=== PATIENT | male | born 1940 | race Caucasian/White ===

== ENCOUNTER 2018-10-01 09:24 | Day surgery (SDC) | payer MEDICARE ==
[~2018-10-01 09:24] MED LIST: ASPI81CH PO; ATOR80 PO; CLOP75 PO; Isosorbide Mono30 MG PO; LISI5 PO; METO25ER PO
== END 2018-10-15 22:46 | disposition home or self-care (01) ==
LOC: CT 09:24
PROC: 0BBC3ZX Excision of Right Upper Lung Lobe, Percutaneous Approach, Diagnostic (ICD-10-PCS; principal; 2018-10-01)
DX: R91.8 Other nonspecific abnormal finding of lung field (principal)
CPT/HCPCS: 32405; 77012

== ENCOUNTER 2018-10-09 09:05 | Day surgery (SDC) | payer MEDICARE ==
--- NOTE | 2018-10-09 12:46 | NUR ---
PT TO RADIOLOGY FOR FOLLOW UP XRAY. AWAITING RADIOLOGY TO SEE IF PT NEEDS FURTHER RECOVERY OR WILL GO HOME FROM RADIOLOGY.
--- NOTE | 2018-10-09 13:02 | NUR ---
Discharge instructions reviewed with patient. Patient verbalizes understanding. Copy given to patient to take home. DISCHARGED BY RADIOLOGY.
== END 2018-10-09 23:14 | disposition home or self-care (01) ==
LOC: CT 09:05
DX: C34.11 Malignant neoplasm of upper lobe, right bronchus or lung (principal)
CPT/HCPCS: 32405; 71045; 77012; 88305; 88341; 88342

== ENCOUNTER 2019-01-21 21:57 | Inpatient (IN) | payer MEDICARE ==
[~2019-01-21] VITALS: Ht 190.5 cm; Wt 69.2 kg
[~2019-01-21 21:57] MED LIST changes: +ALPR1 PO; +Hydrocodone-Ap1 EA23 PO; +LOVA40; +OMEPRAZOLE20 MG PO; +PRED10 PO
[2019-01-21 23:11] LABS: BASOPHILS ABSOLUTE AUTO 0.03 K/mm3 (0.00-0.23); BASOPHILS PERCENT AUTO 0 % (0-2); EOSINOPHILS ABSOLUTE AUTO 0.03 K/mm3 (0.00-0.68); EOSINOPHILS PERCENT AUTO 0 % (0-6); Hematocrit 34.1 % (37.0-53.0); IMMATURE GRAN ABSOLUTE AUTO 0.04 K/mm3 (0.00-0.10); IMMATURE GRAN PERCENT AUTO 0 % (0-1); LYMPHOCYTES ABSOLUTE AUTO 0.58 K/mm3 (0.84-5.20); LYMPHOCYTES PERCENT AUTO 5 % (21-46); MONOCYTES ABSOLUTE AUTO 0.26 K/mm3 (0.16-1.47); MONOCYTES PERCENT AUTO 2 % (4-13); Mean Corpuscular HGB 30.8 pg (26.0-34.0); Mean Corpuscular HGB Conc 32.3 g/dL (31.5-36.5); Mean Corpuscular Volume 96 fL (80-100); Mean Platelet Volume 9.7 fL (9.1-12.4); NEUTROPHILS ABSOLUTE AUTO 11.41 K/mm3 (1.96-9.15); NEUTROPHILS PERCENT AUTO 93 % (41-73); Platelet Count 216 K/mm3 (150-400); RDW Coefficient Variation 13.8 % (11.7-14.2); Red Blood Cell Count 3.57 M/mm3 (4.30-5.90); White Blood Cell Count 12.35 K/mm3 (4.00-11.30)
[2019-01-21 23:30] LABS: Albumin, Blood 2.7 g/dL (3.4-5.0); Albumin/Globulin Ratio 0.6 (0.8-1.8); Bilirubin, Total 0.4 mg/dL (0.1-1.0); Bun/Creatinine Ratio 18.5 (12.0-20.0); Calcium, Blood 8.5 mg/dL (8.5-10.1); Creatinine, Blood 1.24 mg/dL (0.60-1.20); Globulin, Blood 4.2 g/dL (2.2-4.0); Potassium, Blood 4.2 mmol/L (3.5-5.5); Total Protein, Blood 6.9 g/dL (6.4-8.2)
--- NOTE | 2019-01-22 01:42 | NUR ---
0142 ADMIT: PT ARRIVES TO ROOM 343 VIA GOURNEY FROM ER WITH @ SIDE; TRANSFERS SELF TO BED WITH SBA AND APPEARS MILDLY INSTEADY ON FEET. PT STATES HE HAS BECOME INCREASINGLY UNSTEADY THE LAST FEW WEEKS AND HAS A WALKER AVAILABLE TO USE @ HOME. PT AND FAMILY ORIENTED TO BED, ROOM, FALL PRECAUTIONS, CALL SYSTEM AND VERBALIZE UNDERSTANDING. PT APPEARS HARD OF HEARING BUT IS A&O AND ABLE TO VERBALIZE NEEDS AND USE CALL LIGHT APPROPRIATELY. CALL LIGHT PLACED IN REACH.
[2019-01-22] MEDS ORDERED: ALBU90OI61 INH (01:44)
[2019-01-22] MEDS ORDERED: [UNRECOGNIZED DRUG - OTHER] IV (01:52)
[2019-01-22] MEDS ORDERED: KEYTRUDA100 MG/4 M IV (01:53)
--- NOTE | 2019-01-22 07:41 | NUR ---
SUMMARY: NEW ADMIT PNEUMONIA ON HOSPITALIST SERVICE. LOW GRADE TEMP CONTROLLED WITH PO TYLENOL X1, VSS, TELE NSR WITH BBB RATE IN 70'S, 3L O2 VIA NC TO MAINTAIN SPO2 >92%. COARSE RHONCHI T/O WITH HARSH NONPRODUCTIVE COUGH, PT DEMONSTRATES GOOD FLUTTER VALVE USE. PT SLEPT WELL FOR SHORT TIME AFTER PRN ROBITUSSIN AND 1MG PO ALPRAZOLAM (HOME MED AND DOSE). AWAIT SPUTUM AND URINE SAMPLES; DAY RN TO COLLECT RESPIRATORY PANEL SWAB WHEN PT WAKES.
[2019-01-22 10:02] LABS: Adenovirus Not Detected (NOT DETECT); Bordetella pertussis Not Detected (NOT DETECT); Chlamydophila pneumoniae Not Detected (NOT DETECT); Coronavirus 229E Not Detected (NOT DETECT); Coronavirus HKU1 Not Detected (NOT DETECT); Coronavirus NL63 Not Detected (NOT DETECT); Coronavirus OC43 Not Detected (NOT DETECT); Human Metapneumovirus Detected (NOT DETECT); Human Rhinovirus/Enterovirus Not Detected (NOT DETECT); Influenza A Not Detected (NOT DETECT); Influenza A/2009-H1 Not Detected (NOT DETECT); Influenza A/H1 Not Detected (NOT DETECT); Influenza A/H3 Not Detected (NOT DETECT); Influenza B Not Detected (NOT DETECT); Mycoplasma pneumoniae Not Detected (NOT DETECT); Parainfluenza Virus 1 Not Detected (NOT DETECT); Parainfluenza Virus 2 Not Detected (NOT DETECT); Parainfluenza Virus 3 Not Detected (NOT DETECT); Parainfluenza Virus 4 Not Detected (NOT DETECT); Respiratory Syncytial Virus Not Detected (NOT DETECT)
[2019-01-22 11:12] LABS: Source, Urine Clean Catch
[2019-01-22 11:24] LABS: Bilirubin, Urine Neg (Neg); Blood, Urine Neg (Neg); Glucose Qualitative, Urine Neg (Neg); Ketones, Urine Neg (Neg); Leukocyte Esterase, Urine Neg (Neg); Nitrite, Urine Neg (Neg); Protein, Urine 1+ (Neg); Specific Gravity, Urine 1.015 (1.003-1.022); Urobilinogen, Urine NORM (Normal)
[2019-01-22 11:36] LABS: Appearance, Urine Clear (Clear); Color, Urine Yellow (P-Yellow)
[2019-01-22 12:02] LABS: Hematocrit 32.8 % (37.0-53.0); Hemoglobin 10.4 g/dL (13.5-17.5); Mean Corpuscular HGB 30.2 pg (26.0-34.0); Mean Corpuscular HGB Conc 31.7 g/dL (31.5-36.5); Mean Corpuscular Volume 95 fL (80-100); Mean Platelet Volume 9.6 fL (9.1-12.4); Platelet Count 224 K/mm3 (150-400); RDW Coefficient Variation 14.1 % (11.7-14.2); RDW Standard Deviation 49.1 fL (35.1-46.3); Red Blood Cell Count 3.44 M/mm3 (4.30-5.90); White Blood Cell Count 14.98 K/mm3 (4.00-11.30)
[2019-01-22 12:24] LABS: Alanine Aminotransfer (ALT/SGP 13 U/L (12-78); Albumin, Blood 2.4 g/dL (3.4-5.0); Albumin/Globulin Ratio 0.6 (0.8-1.8); Alk Phos 63 U/L (50-136); Anion Gap 3 mmol/L (6-16); Aspartate Aminotrans (AST/SGOT 11 U/L (12-37); Bilirubin, Total 0.8 mg/dL (0.1-1.0); Blood Urea Nitrogen 21 mg/dL (8-24); Bun/Creatinine Ratio 18.8 (12.0-20.0); CO2, Blood 28 mmol/L (21-32); Calcium, Blood 8.3 mg/dL (8.5-10.1); Chloride, Blood 103 mmol/L (98-108); Creatinine, Blood 1.12 mg/dL (0.60-1.20); Globulin, Blood 4.2 g/dL (2.2-4.0); Glomerular Filtration Rate >60 (60-); Glucose, Blood 111 mg/dL (70-99); Potassium, Blood 4.6 mmol/L (3.5-5.5); Sodium, Blood 134 mmol/L (136-145); Total Protein, Blood 6.6 g/dL (6.4-8.2)
--- NOTE | 2019-01-22 17:44 | NUR ---
SUMMARY PT SITTING UP IN BED EATING DINNER, PT HAS BEEN PLEASANT AND COOPERATIVE WITH CARE, PT UP TO THE BATHROOM WITH STANDBY ASSIST, PT USING THE FLUTTER VALVE INDEPENDENTLY, PT WITH A POOR APPETITE T/O THE DAY, SPOUSE CALLED TO CHECK ON THE PT, VSS, NO ACUTE CHANGES, WILL CONT TO MONITOR
--- NOTE | 2019-01-23 05:58 | NUR ---
no acute changes, requested to be allowed to go home in no further treatments will be forthcoming, advised talking to pcp or dr in charge of care, will pass on to day shift pt request, call light in reach, saline locked, 3 L via nc states he rarely uses o2 at home and that he does not need it here, will continue to monitor and treat until SBAR report provided
[2019-01-23] MEDS ORDERED: ACET325 PO (12:43)
[2019-01-23] MEDS ORDERED: BENZ100A PO (12:44)
[2019-01-23] MEDS ORDERED: GUAIFEN-CODEINE10 ML PO (12:46)
[2019-01-23] MEDS ORDERED: LEVOFLOXACIN750 MG PO (12:47)
--- NOTE | 2019-01-23 13:32 | NUR ---
PATIENT DISCHARGE: PATIENT DISCHARGED TO HOME THIS SHIFT. MEDICATION RECONCILIATION COMPLETED; MED LIST FAXED TO [facility]; HARD SCRIPT PROVIDED TO PATIENT FOR CONTROLLED SUBSTANCE. DISCHARGE EDUCATION COMPLETED WITH PATIENT. PATIENT TRANSPORTED TO EXIT BY [facility] STAFF WITH WHEELCHAIR AT 1320. PATIENT DEPARTED [facility] VIA PRIVATE AUTO.
== END 2019-01-23 13:20 | disposition home or self-care (01) | DRG 193 ==
LOC: ER 21:57 → MEDS 01-22 00:19
PROVIDERS: Emergency Medicine; ADMIT Internal Medicine
DX: J12.3 Human metapneumovirus pneumonia (principal); J96.01 Acute respiratory failure with hypoxia; J44.1 Chronic obstructive pulmonary disease with (acute) exacerbation; J44.0 Chronic obstructive pulmonary disease with (acute) lower respiratory infection; C34.90 Malignant neoplasm of unspecified part of unspecified bronchus or lung; E78.5 Hyperlipidemia, unspecified; J70.0 Acute pulmonary manifestations due to radiation; Z99.81 Dependence on supplemental oxygen; Z95.1 Presence of aortocoronary bypass graft; I25.10 Atherosclerotic heart disease of native coronary artery without angina pectoris; Z87.891 Personal history of nicotine dependence; M54.9 Dorsalgia, unspecified
CPT/HCPCS: 36415; 71046; 80053; 83605; 83880; 84145; 85025; 85027; 87040; 87486; 87581; 87633; 87798; 94640; 96365; 99285-25; J1650; J1956; J2930; J7030

== ENCOUNTER 2019-05-09 18:12 | Emergency (ER) | payer MEDICARE, OTHER ==
[~2019-05-09] VITALS: Ht 182.9 cm; Wt 95.2 kg
[~2019-05-09 18:12] MED LIST changes: +ACET325 PO; +ALBU90OI61 INH; +BENZ100A PO; +GUAIFEN-CODEINE10 ML PO; +KEYTRUDA100 MG/4 M IV; +LEVOFLOXACIN750 MG PO; +[UNRECOGNIZED DRUG - OTHER] IV
[2019-05-09] MEDS ORDERED: VENL25 (18:45)
[2019-05-09 19:17] LABS: BASOPHILS ABSOLUTE AUTO 0.05 K/mm3 (0.00-0.23); BASOPHILS PERCENT AUTO 1 % (0-2); EOSINOPHILS ABSOLUTE AUTO 0.23 K/mm3 (0.00-0.68); EOSINOPHILS PERCENT AUTO 2 % (0-6); Hematocrit 26.6 % (37.0-53.0); Hemoglobin 8.8 g/dL (13.5-17.5); IMMATURE GRAN ABSOLUTE AUTO 0.28 K/mm3 (0.00-0.10); IMMATURE GRAN PERCENT AUTO 3 % (0-1); LYMPHOCYTES ABSOLUTE AUTO 1.64 K/mm3 (0.84-5.20); LYMPHOCYTES PERCENT AUTO 18 % (21-46); MONOCYTES ABSOLUTE AUTO 0.45 K/mm3 (0.16-1.47); MONOCYTES PERCENT AUTO 5 % (4-13); Mean Corpuscular HGB 32.1 pg (26.0-34.0); Mean Corpuscular HGB Conc 33.1 g/dL (31.5-36.5); Mean Corpuscular Volume 97 fL (80-100); Mean Platelet Volume 10.9 fL (9.1-12.4); NEUTROPHILS ABSOLUTE AUTO 6.74 K/mm3 (1.96-9.15); NEUTROPHILS PERCENT AUTO 72 % (41-73); Platelet Count 104 K/mm3 (150-400); RDW Standard Deviation 53.1 fL (35.1-46.3); Red Blood Cell Count 2.74 M/mm3 (4.30-5.90); White Blood Cell Count 9.39 K/mm3 (4.00-11.30)
[2019-05-09 19:29] LABS: Source, Urine Clean Catch
[2019-05-09 19:36] LABS: Bilirubin, Urine Neg (Neg); Blood, Urine Neg (Neg); Glucose Qualitative, Urine Neg (Neg); Ketones, Urine Neg (Neg); Leukocyte Esterase, Urine Neg (Neg); Nitrite, Urine Neg (Neg); Protein, Urine Neg (Neg); Specific Gravity, Urine 1.025 (1.003-1.022); Urobilinogen, Urine NORM (Normal)
[2019-05-09 19:39] LABS: Albumin, Blood 3.2 g/dL (3.4-5.0); Albumin/Globulin Ratio 1.1 (0.8-1.8); Bilirubin, Total 0.7 mg/dL (0.1-1.0); Bun/Creatinine Ratio 15.2 (12.0-20.0); Calcium, Blood 8.4 mg/dL (8.5-10.1); Creatinine, Blood 1.64 mg/dL (0.60-1.20); Globulin, Blood 2.8 g/dL (2.2-4.0); Potassium, Blood 4.3 mmol/L (3.5-5.5)
[2019-05-09 19:52] LABS: Appearance, Urine Clear (Clear); Color, Urine Yellow (P-Yellow)
[2019-05-09] MEDS ORDERED: PANT40 PO (21:13)
== END 2019-05-09 22:03 | disposition home or self-care (01) ==
LOC: ER 18:12
PROVIDERS: Emergency Medicine
DX: K59.00 Constipation, unspecified (principal); C34.90 Malignant neoplasm of unspecified part of unspecified bronchus or lung; D64.9 Anemia, unspecified; N39.0 Urinary tract infection, site not specified; I25.10 Atherosclerotic heart disease of native coronary artery without angina pectoris; E78.5 Hyperlipidemia, unspecified; Z87.891 Personal history of nicotine dependence; Z79.899 Other long term (current) drug therapy; Z79.02 Long term (current) use of antithrombotics/antiplatelets
CPT/HCPCS: 36415; 51702; 51798; 74176; 80053; 81003; 85025; 96374-59; 99284-25; J3010

== ENCOUNTER 2019-05-13 12:47 | Inpatient (IN) | payer OTHER, MEDICARE ==
[~2019-05-13] VITALS: Ht 190.5 cm; Wt 82.4 kg
[~2019-05-13 12:47] MED LIST changes: +PANT40 PO; +VENL25
[2019-05-13 13:43] LABS: BASOPHILS ABSOLUTE AUTO 0.03 K/mm3 (0.00-0.23); BASOPHILS PERCENT AUTO 0 % (0-2); EOSINOPHILS ABSOLUTE AUTO 0.18 K/mm3 (0.00-0.68); EOSINOPHILS PERCENT AUTO 2 % (0-6); IMMATURE GRAN PERCENT AUTO 3 % (0-1); LYMPHOCYTES ABSOLUTE AUTO 1.46 K/mm3 (0.84-5.20); LYMPHOCYTES PERCENT AUTO 12 % (21-46); MONOCYTES ABSOLUTE AUTO 0.45 K/mm3 (0.16-1.47); MONOCYTES PERCENT AUTO 4 % (4-13); Mean Corpuscular HGB 33.1 pg (26.0-34.0); Mean Corpuscular HGB Conc 32.8 g/dL (31.5-36.5); Mean Corpuscular Volume 101 fL (80-100); Mean Platelet Volume 10.7 fL (9.1-12.4); NEUTROPHILS ABSOLUTE AUTO 9.57 K/mm3 (1.96-9.15); NEUTROPHILS PERCENT AUTO 80 % (41-73); NRBC ABSOLUTE 0.62 K/mm3 (0.00-0.02); NRBC Auto 5.2 /100 WBC (0.0-0.2); RDW Coefficient Variation 16.2 % (11.7-14.2); RDW Standard Deviation 56.3 fL (35.1-46.3); Red Blood Cell Count 1.72 M/mm3 (4.30-5.90); White Blood Cell Count 11.99 K/mm3 (4.00-11.30)
[2019-05-13 13:46] LABS: Hematocrit 17.4 % (37.0-53.0); Hemoglobin 5.7 g/dL (13.5-17.5); Platelet Count 147 K/mm3 (150-400)
[2019-05-13] MEDS ORDERED: Lovastatin40 MG PO (14:31)
[2019-05-13] MEDS ORDERED: ALPR1 PO (14:32)
[2019-05-13] MEDS ORDERED: Norco 7.5-3251 EACH PO (14:35)
[2019-05-13 14:40] LABS: Albumin, Blood 3.5 g/dL (3.4-5.0); Albumin/Globulin Ratio 1.1 (0.8-1.8); Bilirubin, Total 1.5 mg/dL (0.1-1.0); Bun/Creatinine Ratio 15.5 (12.0-20.0); Calcium, Blood 8.5 mg/dL (8.5-10.1); Creatinine, Blood 1.87 mg/dL (0.60-1.20); Globulin, Blood 3.1 g/dL (2.2-4.0); Potassium, Blood 4.2 mmol/L (3.5-5.5); Total Protein, Blood 6.6 g/dL (6.4-8.2)
[2019-05-13] MEDS ORDERED: VENL75ER PO (14:41)
--- NOTE | 2019-05-13 18:35 | NUR ---
pt arrived to pcu 15 via gurney from ED. report was obtained, pt is awake a/ox3, pleasant and cooperative with care, but is a bit [place] and forgetful, lungs are clear in upper bai, dim in bases, resp even and unlabored, no cough noted, hrr, tele in place running sb to sr per monitor, see strip, no edema noted, ppp+1, cap refill <3sec, vs stable, afebrile, iv site is clear and patent, to left ac, blood transfusing at this time, btx4, abd round semi firm doesn't seem to be tender, last bm yesterday per , unable to void, states for 2 days, and they placed a white a few days ago, changed him from a leg back to large bag, but unable to obtain urine at this time for u/a, main, very weak, is able to assist to turn, but states he is to weak to ambulate, skin has large purple bruise to sacrum and left buttock, and some bruising to arms. layla, oriented to room layout call system, call light in reach.
[2019-05-13 21:39] LABS: Source, Urine Voided
[2019-05-13 21:44] LABS: Appearance, Urine Clear (Clear); Bilirubin, Urine Neg (Neg); Blood, Urine 5+ (Neg); Color, Urine Amber (P-Yellow); Glucose Qualitative, Urine Neg (Neg); Ketones, Urine Neg (Neg); Leukocyte Esterase, Urine 1+ (Neg); Nitrite, Urine Neg (Neg); Protein, Urine 2+ (Neg); Specific Gravity, Urine 1.025 (1.003-1.022); Urobilinogen, Urine NORM (Normal)
[2019-05-13 21:50] LABS: Bacteria Many /hpf; Hyaline Casts 0-2 /lpf (0-2); Mucus Light (0-Heavy); Red Blood Cells, Urine 50-100 /hpf (0-2); Squamous Epithelial Cells Not Seen /hpf (Few)
--- NOTE | 2019-05-13 22:09 | NUR ---
ASSUMED CARE OF PATIENT AT [facility] FROM KIRIT Roy RN. PATIENT HAD ONE UNIT OF RBC INFUSING DURING SHIFT CHANGE. ONE MORE UNIT OF RBC CURRENTLY INFUSING; THIS RN STAYED IN ROOM WITH PATIENT FOR FIRST 15 MINUTES OF TRANSFUSION; NO S/S OF ADVERSE REACTION NOTED. PATIENT ALERT AND ORIENTED; FORGETFUL AT TIMES; HARD OF HEARING. SB ON TELE; OXYGEN SATUARTION ABOVE 90% ON 2LPM VIA NC (BASELINE IS REPORTED AT 3LPM VIA NC AT NIGHT). PATIENT HAS MULTIPLE BRUISES T/O BODY; PICTURES OF LARGE BRUISED TAKEN AND PLACED IN CHART; PATIENT TURNED FREQUENTLY. PATIENT HAS CHRONIC CATHETER PLACED LAST FRIDAY; REPORTED BAG CHANGED; SAMPLE SENT. PATIENT CURRENTLY RESTING IN BED; CALL LIGHT IN REACH; BED IN LOWEST POSISTION; BED ALARM ON; WILL CONTINUE TO MONITOR AND ASSESS UNTIL END OF SHFIT.
[2019-05-14 02:07] LABS: Hematocrit 20.4 % (37.0-53.0); Hemoglobin 6.9 g/dL (13.5-17.5); Mean Corpuscular HGB 32.7 pg (26.0-34.0); Mean Corpuscular HGB Conc 33.8 g/dL (31.5-36.5); Mean Platelet Volume 10.1 fL (9.1-12.4); NRBC ABSOLUTE 0.39 K/mm3 (0.00-0.02); NRBC Auto 4.6 /100 WBC (0.0-0.2); Platelet Count 107 K/mm3 (150-400); RDW Coefficient Variation 15.3 % (11.7-14.2); RDW Standard Deviation 51.5 fL (35.1-46.3); Red Blood Cell Count 2.11 M/mm3 (4.30-5.90)
[2019-05-14 02:08] LABS: Mean Corpuscular Volume 97 fL (80-100)
[2019-05-14 02:25] LABS: Calcium, Blood 7.9 mg/dL (8.5-10.1); Creatinine, Blood 1.63 mg/dL (0.60-1.20); Potassium, Blood 4.1 mmol/L (3.5-5.5)
--- NOTE | 2019-05-14 02:33 | NUR ---
CALLED DR. ROSS TO REPORT H/H OF 6.9/20.4 FROM 5.7/17.4; ORDERS TO MONITOR FOR NOW. PATIENT HAS BEEN SLEEPING WELL; WAKES EASILY TO VERBAL STIMULUS. WILL CONTINUE TO MONITOR AND ASSESS UNTIL END OF SHIFT.
--- NOTE | 2019-05-14 06:06 | NUR ---
PATIENT SLEPT ABOUT NINE HOURS LAST NIGHT; REPORTS SLEPT WELL. NO OTHER ACUTE CHANGES TO REPORT. VSS. WILL CONTINUE TO MONITOR AND ASSESS UNTIL END OF SHIFT.
--- NOTE | 2019-05-14 07:57 | NUR ---
pt laying in bed awake a/ox3, forgetful and [place], watching tv. states he feels good and had a good night, lungs have some exp wheezing lise in left bai, dim in bases, resp even and unalbored, no cough noted, hrr, tele in place running sb per monitor, see strip, no edema noted, ppp+1, cap refill <3sec, vs stable, afebrile, iv site site is clear and patent, btx4, abd round soft nontender, white cath draining clear yellow urine, skin has bruising to back and left buttock, fa's. maew, but is very weak, layla, call light in reach.
--- NOTE | 2019-05-14 12:19 | NUR ---
pt reports some mild dizziness, started another blood transfusion, he is tolerating it well. vs stable, call light in reach.
[2019-05-14 17:03] LABS: Hematocrit 24.5 % (37.0-53.0); Hemoglobin 8.3 g/dL (13.5-17.5)
--- NOTE | 2019-05-14 18:22 | NUR ---
pt recieved one unit of prbc today, tolerated well. no complaints. family in to see pt, Dr. Dubose came in and spoke to them. no further changes this shift. call light in reach.
[2019-05-15 04:19] LABS: Hematocrit 25.9 % (37.0-53.0); Hemoglobin 8.6 g/dL (13.5-17.5); Mean Corpuscular HGB 31.5 pg (26.0-34.0); Mean Corpuscular HGB Conc 33.2 g/dL (31.5-36.5); Mean Corpuscular Volume 95 fL (80-100); Mean Platelet Volume 10.2 fL (9.1-12.4); NRBC ABSOLUTE 0.17 K/mm3 (0.00-0.02); NRBC Auto 2.4 /100 WBC (0.0-0.2); Platelet Count 143 K/mm3 (150-400); RDW Coefficient Variation 17.7 % (11.7-14.2); RDW Standard Deviation 57.2 fL (35.1-46.3); Red Blood Cell Count 2.73 M/mm3 (4.30-5.90); White Blood Cell Count 7.04 K/mm3 (4.00-11.30)
[2019-05-15 04:39] LABS: Bun/Creatinine Ratio 13.2 (12.0-20.0); Calcium, Blood 7.9 mg/dL (8.5-10.1); Creatinine, Blood 1.52 mg/dL (0.60-1.20); Potassium, Blood 3.8 mmol/L (3.5-5.5)
--- NOTE | 2019-05-15 05:53 | NUR ---
SHIFT SUMMARY PT SLEEPING IN ROOM COMFORTABLY AT THIS TIME. NO ACUTE CHANGES IN STATUS T/O NIGHT. PT REMAINED IN A SINUS RIP HEART RHTHYM WHILE SLEEPING, REMAINED ASYMPTOMATIC OF LOW HR. RESP EVEN UNLABORED ON RA W/ SATS >92%, PT DECLINED USING 2L NC DURING SLEEP THIS NIGHT. DENIED ANY CP OR SOB. BRYANT CATH IN PLACE DRAINING YELLOW URINE TO GRAVITY. DENIED OTHER NEEDS. DENIED ANY PAIN. CALL LIGHT IN REACH.
[2019-05-15] MEDS ORDERED: TIMO.5OPSO BOTHEYES (10:25)
--- NOTE | 2019-05-15 14:29 | NUR ---
1415-Julio Catheter placed per request of primary RN for Retention prior to discharge. 14FR coude placed without problem with return of clear yellow urine, balloon inflated with 10mls saline. Leg bag attached to Julio per patient request, secured with stat lock to R thigh. Night bag sent home with patient. Spouse instructed on care of catheter to prevent pulling on Julio and watching for pressure injury, she v/u.
--- NOTE | 2019-05-15 15:19 | NUR ---
DISCHARGED BRYANT CATH PLACED PER ORDERS. IV DC'D, CATHETER INTACT. REVIEWED DC PAPERWORK W/PT AND SPOUSE. SPOUSE VERBALIZED UNDERSTANDING. PT LEFT UNIT IN WC ACCOMPANIED BY SPOUSE AND SON W/POSSESSIONS AND DC PAPERWORK IN HAND.
== END 2019-05-15 14:35 | disposition home or self-care (01) | DRG 812 ==
LOC: ER 12:47 → PCU 15:01
PROVIDERS: Emergency Medicine; ADMIT Internal Medicine
PROC: 30233N1 Transfusion of Nonautologous Red Blood Cells into Peripheral Vein, Percutaneous Approach (ICD-10-PCS; principal; 2019-05-13)
DX: D62 Acute posthemorrhagic anemia (principal); N17.9 Acute kidney failure, unspecified; D61.1 Drug-induced aplastic anemia; D49.1 Neoplasm of unspecified behavior of respiratory system; D63.8 Anemia in other chronic diseases classified elsewhere; I12.9 Hypertensive chronic kidney disease with stage 1 through stage 4 chronic kidney disease, or unspecified chronic kidney disease; N18.3 Chronic kidney disease, stage 3 (moderate); J44.9 Chronic obstructive pulmonary disease, unspecified; I25.10 Atherosclerotic heart disease of native coronary artery without angina pectoris; E78.5 Hyperlipidemia, unspecified
CPT/HCPCS: 36415; 36430; 74176; 80048; 80053; 81001; 82150; 83690; 85014; 85018; 85025; 85027; 86850; 86870; 86900; 86901; 86902; 86922; 93005; 93010; 99285-25; J7030; J7512; P9016